=== PATIENT | female | born 1995 | race Two or more races ===

== ENCOUNTER 2023-03-06 11:26 | Outpatient (CLI) | payer OTHER | END 2023-03-06 11:28 | disposition home or self-care (01) | LOC: SONOGRAMA 11:26 | PROVIDERS: ATTEND Specialist | DX: O03.80 Unspecified complication following complete or unspecified spontaneous abortion (principal) ==

== ENCOUNTER 2023-03-08 06:28 | Day surgery (SDC) | payer OTHER | END 2023-03-08 17:55 | disposition home or self-care (01) | LOC: CIR.AMB 06:28 → LAB 09:30 → CIR.AMB 17:55 | PROVIDERS: ATTEND Specialist | DX: O02.1 Missed abortion (principal); O72.2 Delayed and secondary postpartum hemorrhage; Z20.822 Contact with and (suspected) exposure to COVID-19 ==

== ENCOUNTER 2024-01-17 14:00 | Inpatient (IN) | payer OTHER ==
[~2024-01-17] VITALS: Ht 165.1 cm; Wt 88.9 kg
[2024-01-28 06:28] LABS: URINE APPEARANCE Cloudy; URINE BILIRRUBIN Negative (NEGATIVE); URINE BLOOD Negative; URINE COLOR Yellow; URINE GLUCOSE Negative (NEGATIVE); URINE LEUKOCYTE Large; URINE NITRATE Negative; URINE PROTEIN Trace (NEGATIVE)
[2024-01-28 06:32] LABS: URINE BACTERIA 4392.2 uL (0.0-1933); URINE EPITHELIAL CELLS 85.4 uL (0.0-38.8); URINE WBC 208.4 uL (0.0-23.2)
[2024-01-28] MEDS ORDERED: OXYTOCIN 20 UNITS/500ML RL PIGGYBAG IV ONE (06:43)
[2024-01-28 06:47] LABS: HEMATOCRIT 37.2 % (36.0-45.00); HEMOGLOBIN 12.8 g/dL (12.0-15.00); MEAN CELL VOLUME 79.8 fL (80.00-100.00); MEAN CORPUSCULAR HEMOGLOBIN 27.4 pg (27.00-32.0); MEAN CORPUSCULAR HGB CONC 34.3 g/dl (32.0-36.0); PLATELET COUNT 162 K/uL (150-450); RED BLOOD COUNT 4.67 M/uL (4.00-6.00); RED CELL DISTRIBUTION WIDTH 13.7 % (11.5-14.5)
[2024-01-28] MEDS ORDERED: OXYTOCIN 500 ML IV SCH (07:00)
[2024-01-28] MEDS ORDERED: RINGERS SOLUTION,LACTATED 1,000 ML IV SCH (07:00)
[2024-01-28] MEDS ORDERED: LIDOCAINE HCL 20 MG/1 ML VIAL 20ML ONE (07:08)
[2024-01-28] MEDS ORDERED: BUPIVACAINE HCL/PF 0.5% 30ML ML ONE (07:08)
[2024-01-28] MEDS ORDERED: LIDOCAINE HCL 1% 200MG/20ML VIAL IJ ONE (07:08)
[2024-01-28 07:09] LABS: INR < 0.93; PARTIAL THROMBOPLASTIN TIME 29.2 SECONDS (22.0-34.0); PROTHROMBIN TIME 9.8 SECONDS (9.0-11.5)
[2024-01-28 07:21] LABS: URINE YEAST FEW /hpf
[2024-01-28] MEDS ORDERED: PROMETHAZINE HCL 25 MG/ML AMPUL ONE ×2 (09:09→16:30)
[2024-01-28] MEDS ORDERED: MEPERIDINE HCL/PF 50 MG/ML VIAL IV ONE (09:45)
[2024-01-28] MEDS ORDERED: PROMETHAZINE HCL 25 MG/ML AMPUL IV ONE (09:45)
[2024-01-28] MEDS ORDERED: MEPERIDINE HCL/PF 50 MG/ML VIAL IV STA (13:03)
[2024-01-28] MEDS ORDERED: PROMETHAZINE HCL 25 MG/ML AMPUL IV STA ×2 (13:04→16:29)
[2024-01-28] MEDS ORDERED: CHLORHEXIDINE GLUCONATE 120 ML BOTTLE TOP ONE (13:10)
[2024-01-28] MEDS ORDERED: OXYTOCIN 20 UNITS/1000ML RL PIGGYBAG IV ONE ×2 (13:10→22:15)
[2024-01-28] MEDS ORDERED: ERYTHROMYCIN BASE 1 GM TUBE OP ONE ×2 (13:10→22:15)
[2024-01-28] MEDS ORDERED: MEPERIDINE HCL 25 MG/ML AMPUL IV STA (16:29)
[2024-01-28] MEDS ORDERED: CEFAZOLIN SODIUM 1,000 MG VIAL ONE (20:03)
[2024-01-28] MEDS ORDERED: OXYTOCIN 10 UNITS/ML VIAL ONE (20:03)
[2024-01-28] MEDS ORDERED: ERYTHROMYCIN BASE 3.5 GM OINT...G. OP ONE (20:03)
[2024-01-28] MEDS ORDERED: ONDANSETRON HCL 2 MG/ML VIAL IV PRN (21:30)
[2024-01-28] MEDS ORDERED: PROMETHAZINE HCL 50 MG/ML AMPUL IM PRN (21:30)
[2024-01-28] MEDS ORDERED: MEPERIDINE HCL/PF 25 MG/ML VIAL IV PRN (21:30)
[2024-01-28] MEDS ORDERED: MORPHINE SULFATE 4 MG in 0.9 % SODIUM CHLORIDE 9 ML IV PRN (21:30)
[2024-01-28] MEDS ORDERED: MEPERIDINE HCL/PF 50 MG/ML VIAL IM PRN (21:30)
[2024-01-28] MEDS ORDERED: CEFAZOLIN SODIUM 1,000 MG VIAL IV ONE (22:15)
[2024-01-29] MEDS ORDERED: CEFAZOLIN SODIUM 1,000 MG VIAL IV SCH (02:00)
[2024-01-29] MEDS ORDERED: MORPHINE SULFATE 4 MG in 0.9 % SODIUM CHLORIDE 9 ML IV PRN (06:45)
[2024-01-29 07:08] LABS: HEMATOCRIT 36.1 % (36.0-45.00); HEMOGLOBIN 12.1 g/dL (12.0-15.00); MEAN CELL VOLUME 81.3 fL (80.00-100.00); MEAN CORPUSCULAR HEMOGLOBIN 27.4 pg (27.00-32.0); MEAN CORPUSCULAR HGB CONC 33.7 g/dl (32.0-36.0); PLATELET COUNT 147 K/uL (150-450); RED BLOOD COUNT 4.43 M/uL (4.00-6.00); RED CELL DISTRIBUTION WIDTH 13.9 % (11.5-14.5)
[2024-01-29] MEDS ORDERED: OxyCODONE HCL/APAP UD (PERCOCET) PO PRN (08:00)
[2024-01-29] MEDS ORDERED: ACETAMINOPHEN 500 MG GEL..CAP PO PRN (08:00)
[2024-01-31] MEDS ORDERED: IBUPROFEN800 MG PO (07:53)
== END 2024-01-31 15:07 | disposition home or self-care (01) | DRG 788 ==
LOC: OB/GYN 01-28 05:07 → LDR 01-28 05:07 → O/R 01-28 20:17 → OB/GYN 01-28 21:51
PROVIDERS: ADMIT Specialist; ATTEND Specialist
PROC: 4A1HXCZ Monitoring of Products of Conception, Cardiac Rate, External Approach (ICD-10-PCS; 2024-01-28)
PROC: 10D00Z1 Extraction of Products of Conception, Low, Open Approach (ICD-10-PCS; principal; 2024-01-28 19:00)
DX: O62.2 Other uterine inertia (principal); O36.63X0 Maternal care for excessive fetal growth, third trimester, not applicable or unspecified; O48.0 Post-term pregnancy; Z3A.40 40 weeks gestation of pregnancy; Z37.0 Single live birth; Z20.822 Contact with and (suspected) exposure to COVID-19

== ENCOUNTER 2025-05-07 09:15 | Inpatient (IN) | payer OTHER ==
[~2025-05-07] VITALS: Ht 165.1 cm; Wt 2.7 kg
[~2025-05-07 09:15] MED LIST: IBUPROFEN800 MG PO
[2025-05-07 11:18] LABS: BASO % 0.6 % (0.1-1.2); EOS # 0.05 (0.04-0.54); EOS % 0.6 % (0.7-7.0); HEMATOCRIT 36.9 % (34.1-44.9); HEMOGLOBIN 12.2 g/dL (11.2-15.7); LYMPH # 1.83 (1.18-3.74); LYMPH % 20.8 % (19.3-53.1); MEAN CORPUSCULAR HEMOGLOBIN 26.3 pg (25.6-32.2); MONO % 6.8 % (4.7-12.5); NEUT # 6.22 (1.56-6.13); NEUT % 70.9 % (34.0-71.1); PLATELET COUNT 158 K/uL (163-369); RED BLOOD COUNT 4.63 M/uL (3.93-5.22); RED CELL DISTRIBUTION WIDTH 12.7 % (11.6-14.4)
[2025-05-07 11:26] LABS: URINE APPEARANCE Cloudy; URINE BILIRRUBIN Negative (NEGATIVE); URINE BLOOD Negative; URINE COLOR Yellow; URINE GLUCOSE Negative (NEGATIVE); URINE KETONE Negative (NEGATIVE); URINE LEUKOCYTE Negative; URINE NITRATE Negative; URINE PROTEIN Trace (NEGATIVE)
[2025-05-07 11:31] LABS: URINE EPITHELIAL CELLS 114.2 uL (0.0-38.8); URINE RBC 3.3 uL (0.0-20.8); URINE WBC 18.5 uL (0.0-23.2)
[2025-05-07 11:52] LABS: URINE CAST 0.29 uL (0.0-1.40)
[2025-05-07 11:53] LABS: TYPE CELLS SQUAMOUS
[2025-05-07] MEDS ORDERED: PRENATABS RX T1 EACH PO (12:01)
[2025-05-07 12:18] LABS: INR 0.94; PARTIAL THROMBOPLASTIN TIME 26.5 SECONDS (22.0-34.0); PROTHROMBIN TIME 10.3 SECONDS (9.0-11.5)
[2025-05-07 12:20] LABS: ALBUMIN 2.7 gm/dL (3.4-5.0); BILIRUBIN TOTAL 0.6 mg/dL (0.3-1.2); CALCIUM 8.8 mg/dL (8.5-10.1); CREATININE SERUM 0.88 mg/dL (0.55-1.02); GFR 75.97; GLOBULINA 4.6 G/DL (2.4-3.5); POTASSIUM 3.97 mEq/L (3.5-5.1); TOTAL PROTEIN 7.3 gm/dL (6.4-8.2)
[2025-05-11 03:54] VITALS: BP 104/70
[2025-05-11] MEDS ORDERED: RINGERS SOLUTION,LACTATED 1,000 ML IV SCH (04:45)
[2025-05-11] MEDS ORDERED: CEFAZOLIN SODIUM 1,000 MG VIAL IV SCH ×2 (04:45→14:00)
[2025-05-11 06:09] VITALS: BP 117/70; O2SAT 99
[2025-05-11] MEDS ORDERED: CEFAZOLIN SODIUM 1,000 MG VIAL ONE (06:09)
[2025-05-11] MEDS ORDERED: OXYTOCIN 10 UNITS/ML VIAL ONE (06:12)
[2025-05-11] MEDS ORDERED: ERYTHROMYCIN BASE OPHT 1GM EACH TUBE OP ONE (06:13)
[2025-05-11] MEDS ORDERED: MORPHINE SULFATE 4 MG/ML VIAL IV PRN (08:15)
[2025-05-11] MEDS ORDERED: MORPHINE SULFATE 4 MG/ML VIAL IV ONE ×2 (09:40→10:35)
[2025-05-11] MEDS ORDERED: MORPHINE SULFATE 4 MG/ML CARTRIDGE IV PRN (11:45)
[2025-05-11 11:58] VITALS: BP 106/65
[2025-05-11] MEDS ORDERED: ACETAMINOPHEN 500 MG GEL..CAP PO PRN (13:15)
[2025-05-11] MEDS ORDERED: OxyCODONE HCL 5 MG TABLET (ROXICODONE) PO PRN (13:15)
[2025-05-11 15:41] VITALS: BP 111/74
[2025-05-11] MEDS ORDERED: KETOROLAC TROMETHAMINE 60 MG VIAL IM ONE (20:01)
[2025-05-11] MEDS ORDERED: KETOROLAC TROMETHAMINE 60 MG VIAL IM STA (20:11)
[2025-05-11 20:47] VITALS: BP 110/75
[2025-05-12] VITALS: BP 110/73
[2025-05-12 02:25] LABS: BASO % 0.4 % (0.1-1.2); EOS # 0.04 (0.04-0.54); EOS % 0.3 % (0.7-7.0); HEMATOCRIT 36.3 % (34.1-44.9); HEMOGLOBIN 12.1 g/dL (11.2-15.7); LYMPH # 1.69 (1.18-3.74); LYMPH % 14.5 % (19.3-53.1); MEAN CORPUSCULAR HEMOGLOBIN 26.3 pg (25.6-32.2); MONO # 0.84 (0.24-0.82); MONO % 7.2 % (4.7-12.5); NEUT # 9.03 (1.56-6.13); NEUT % 77.3 % (34.0-71.1); PLATELET COUNT 155 K/uL (163-369); RED CELL DISTRIBUTION WIDTH 12.8 % (11.6-14.4)
[2025-05-12] MEDS ORDERED: IBUprofen 800 MG TABLET PO PRN (06:45)
[2025-05-12 08:26] VITALS: BP 107/74
[2025-05-12 16:25] VITALS: BP 110/76
[2025-05-13 01:26] VITALS: BP 111/77
[2025-05-13] MEDS ORDERED: IBUPROFEN800 MG PO (07:37)
[2025-05-13 10:44] VITALS: BP 109/71
== END 2025-05-13 14:18 | disposition home or self-care (01) | DRG 785 ==
LOC: OB/GYN 05-11 04:12 → LDR 05-11 04:12 → O/R 05-11 10:03 → OB/GYN 05-11 10:53
PROVIDERS: ADMIT Specialist; ATTEND Specialist
PROC: 0UB70ZZ Excision of Bilateral Fallopian Tubes, Open Approach (ICD-10-PCS; 2025-05-11)
PROC: 4A1HXCZ Monitoring of Products of Conception, Cardiac Rate, External Approach (ICD-10-PCS; 2025-05-11)
PROC: 10D00Z1 Extraction of Products of Conception, Low, Open Approach (ICD-10-PCS; principal; 2025-05-11 07:00)
DX: O34.211 Maternal care for low transverse scar from previous cesarean delivery (principal); Z3A.37 37 weeks gestation of pregnancy; Z37.0 Single live birth; Z30.2 Encounter for sterilization